=== PATIENT | male | born 1945 | race Caucasian/White ===

== ENCOUNTER 2017-12-12 09:44 | Observation (INO) | payer OTHER, MEDICARE ==
[2017-12-12] MEDS ORDERED: SODIUM CHLORIDE 0.9% 500 ML IV STA (10:20)
[2017-12-12] MEDS ORDERED: RX INFO: IV CONTRAST WAS GIVEN 1 EACH MISC MISCELLANE PRN (10:20)
[2017-12-12] MEDS ORDERED: SODIUM CHLORIDE 0.9% 1,000 ML IV STA (10:20)
[2017-12-12] MEDS ORDERED: ONDANSETRON 4 MG/2 ML VIAL IVP STA (10:20)
[2017-12-12] MEDS ORDERED: MAG HYDROX/AL HYDROX/SIMETH 30 ML, HYOSCYAMINE ELIXIR 10 ML, CIMETIDINE HCL 300 MG, LID... PO STA ×4 (10:21)
[2017-12-12] MEDS ORDERED: PANTOPRAZOLE 40 MG/10 ML VIAL IVP STA (10:21)
--- NOTE | 2017-12-12 10:48 | ED ---
Abdominal Pain HPI - General Chief Complaint: Abdominal Pain Stated Complaint: Abd Pain Time Seen by Provider: 12/12/17 10:11 Source: patient Mode of arrival: ambulatory Limitations: no limitations - History of Present Illness Initial Comments: This 72-year-old white male presents with a complaint of some midepigastric abdominal pain. He states that it started at approximately 1 AM today. It has been constant in nature. He has not tried to eat or drink anything. He has tried some Tylenol with limited relief. He denies any fevers or chills. He denies any nausea, vomiting, or diarrhea. There has been no chest pain or shortness of breath. He does relate a history remotely of being diagnosed with a hiatal hernia and his 30s. He will drink alcohol on occasion but none in the past several weeks. He apparently had a similar incident approximately 3 weeks ago and this resolved spontaneously after taking some Tylenol. He has taken some Advil approximately 2 and 3 days ago and does not normally take this. He apparently was having some minimal low back pain at that time but this has resolved. He denies any known history of peptic ulcer disease or pancreatitis. There is no history of known reflux. He did also try some Maalox without relief. No other complaints or modifying factors. He denies any known cardiac history. - Related Data Home Medications Medication Instructions Recorded Confirmed Aspirin EC [Ecotrin Low Dose] 81 mg PO HS 12/12/17 12/12/17 Lovastatin [Mevacor] 10 mg PO HS 12/12/17 12/12/17 Multivitamins, Thera [Multivitamin 1 tab PO HS 12/12/17 12/12/17 (formulary)] Ubidecarenone [Co Q-10] 100 mg PO HS 12/12/17 12/12/17 Allergies Allergy/AdvReac Type Severity Reaction Status Date / Time Sulfa (Sulfonamide Allergy Rash/Hives Verified 12/12/17 09:58 Antibiotics) Review of Systems ROS Statement: Those systems with pertinent positive or pertinent negative responses have been documented in the HPI. ROS Other: All systems not noted in ROS Statement are negative. Past Medical History Past Medical History: Hyperlipidemia History of Any Multi-Drug Resistant Organisms: None Reported Past Surgical History: No Surgical Hx Reported Past Psychological History: No Psychological Hx Reported Smoking Status: Never smoker Past Alcohol Use History: Occasional Past Drug Use History: None Reported General Exam - General Exam Comments Initial Comments: GENERAL: The patient is well nourished and well hydrated. VITAL SIGNS: Heart rate, blood pressure, respiratory rate reviewed as recorded in nurse's notes. EYES: Pupils are round and reactive. Extraocular movements are intact. No conjunctival / lid redness or swelling. ENT: No external evidence of injury, swelling, or ecchymosis. Airway is patent. Throat is clear. NECK: Nontender. No swelling or evidence of injury. No subcutaneous emphysema. Trachea is midline. No thyroid mass. HEART: Regular rate and rhythm. Good peripheral pulses. LUNGS/CHEST: Breath sounds clear and equal bilaterally. No rales, rhonchi, or wheezes. No ecchymosis, subcutaneous emphysema, or tenderness. ABDOMEN: There is tenderness directly in the midepigastric region only. No palpable masses or organomegaly. No peritoneal signs. No abdominal wall swelling or ecchymosis. EXTREMITIES: No extremity tenderness. Normal muscle tone and function. No thoracolumbar tenderness. NEUROLOGIC: Sensation is grossly intact. Cranial nerve exam reveals face is symmetrical, tongue is midline, speech is clear. SKIN: No abrasions or ecchymosis is noted. No induration or masses noted. PSYCHIATRIC: Alert and oriented. Appropriate behavior and judgment. Limitations: no limitations Course Vital Signs 12/12/17 12/12/17 12/12/17 09:44 12:24 14:11 Temperature 97.5 F L Pulse Rate 78 74 77 Respiratory 18 18 18 Rate Blood Pressure 198/88 138/84 144/83 O2 Sat by Pulse 98 98 100 Oximetry Medical Decision Making - Medical Decision Making The patient was seen and examined. All diagnostics were reviewed. An IV is started and he does receive some Protonix as well as some Zofran intravenously. He also receives a GI cocktail. The patient did not have any significant relief with the medication and therefore is given 4 mg of morphine intravenously. The laboratory was all essentially within normal limits. The computed tomography scan of the abdomen and pelvis does show evidence of gallstones and they recommend a gallbladder ultrasound or nuclear medicine study. The gallbladder ultrasound is ordered. The radiologist does also note a degree of prostatic hypertrophy. The EKG shows a sinus bradycardia at a rate of 58. There is some T-wave inversions in lead 3 and aVF. There is evidence of possible left ventricular hypertrophy. There is T-wave inversions in V5 and V6 as well. The CT intervals 148, QRS duration is 110, and the QTC intervals 424. The cardiac enzymes are negative but these will be repeated. The case is discussed with PCP and he recommends admission to the hospital with surgery and cardiology consults. It certainly appears that he does have a degree of cholecystitis but also has no EKG changes and will need cardiac clearance prior to any gallbladder intervention. His pain is in the midepigastric region as well and the possibility of this being related to a cardiac event is possible. - Lab Data Result diagrams: 12/12/17 10:46 12/12/17 10:46 Lab Results 12/12/17 12/12/17 12/12/17 Range/Units 10:46 10:46 10:46 WBC 9.4 (3.8-10.6) k/uL RBC 5.22 (4.30-5.90) m/uL Hgb 16.0 (13.0-17.5) gm/dL Hct 48.0 (39.0-53.0) % MCV 91.9 (80.0-100.0) fL MCH 30.6 (25.0-35.0) pg MCHC 33.3 (31.0-37.0) g/dL RDW 13.3 (11.5-15.5) % Plt Count 152 (150-450) k/uL Neutrophils % 83 % Lymphocytes % 9 % Monocytes % 4 % Eosinophils % 3 % Basophils % 0 % Neutrophils # 7.8 H (1.3-7.7) k/uL Lymphocytes # 0.8 L (1.0-4.8) k/uL Monocytes # 0.4 (0-1.0) k/uL Eosinophils # 0.3 (0-0.7) k/uL Basophils # 0.0 (0-0.2) k/uL PT (9.0-12.0) sec INR (<1.2) APTT (22.0-30.0) sec Sodium 143 (137-145) mmol/L Potassium 4.4 (3.5-5.1) mmol/L Chloride 103 (98-107) mmol/L Carbon Dioxide 26 (22-30) mmol/L Anion Gap 14 mmol/L BUN 11 (9-20) mg/dL Creatinine 0.69 (0.66-1.25) mg/dL Est GFR (CKD-EPI)AfAm >90 (>60 ml/min/1.73 sqM) Est GFR (CKD-EPI)NonAf >90 (>60 ml/min/1.73 sqM) Glucose 104 H (74-99) mg/dL Calcium 9.5 (8.4-10.2) mg/dL Total Bilirubin 0.9 (0.2-1.3) mg/dL AST 37 (17-59) U/L ALT 53 (21-72) U/L Alkaline Phosphatase 50 (38-126) U/L Total Creatine Kinase 132 (55-170) U/L CK-MB (CK-2) 1.7 (0.0-2.4) ng/mL CK-MB (CK-2) Rel Index 1.3 Troponin I <0.012 (0.000-0.034) ng/mL Total Protein 7.2 (6.3-8.2) g/dL Albumin 4.7 (3.5-5.0) g/dL Amylase 85 (30-110) U/L Lipase 152 (23-300) U/L Urine Color Urine Appearance (Clear) Urine pH (5.0-8.0) Ur Specific [place] (1.001-1.035) Urine Protein (Negative) Urine Glucose (UA) (Negative) Urine Ketones (Negative) Urine Blood (Negative) Urine Nitrite (Negative) Urine Bilirubin (Negative) Urine Urobilinogen (<2.0) mg/dL Ur Leukocyte Esterase (Negative) Urine RBC (0-5) /hpf Urine WBC (0-5) /hpf Urine Mucus (None) /hpf Urine Sperm (None) /hpf 12/12/17 12/12/17 Range/Units 10:46 10:46 WBC (3.8-10.6) k/uL RBC (4.30-5.90) m/uL Hgb (13.0-17.5) gm/dL Hct (39.0-53.0) % MCV (80.0-100.0) fL MCH (25.0-35.0) pg MCHC (31.0-37.0) g/dL RDW (11.5-15.5) % Plt Count (150-450) k/uL Neutrophils % % Lymphocytes % % Monocytes % % Eosinophils % % Basophils % % Neutrophils # (1.3-7.7) k/uL Lymphocytes # (1.0-4.8) k/uL Monocytes # (0-1.0) k/uL Eosinophils # (0-0.7) k/uL Basophils # (0-0.2) k/uL PT 10.7 (9.0-12.0) sec INR 1.1 (<1.2) APTT 25.0 (22.0-30.0) sec Sodium (137-145) mmol/L Potassium (3.5-5.1) mmol/L Chloride (98-107) mmol/L Carbon Dioxide (22-30) mmol/L Anion Gap mmol/L BUN (9-20) mg/dL Creatinine (0.66-1.25) mg/dL Est GFR (CKD-EPI)AfAm (>60 ml/min/1.73 sqM) Est GFR (CKD-EPI)NonAf (>60 ml/min/1.73 sqM) Glucose (74-99) mg/dL Calcium (8.4-10.2) mg/dL Total Bilirubin (0.2-1.3) mg/dL AST (17-59) U/L ALT (21-72) U/L Alkaline Phosphatase (38-126) U/L Total Creatine Kinase (55-170) U/L CK-MB (CK-2) (0.0-2.4) ng/mL CK-MB (CK-2) Rel Index Troponin I (0.000-0.034) ng/mL Total Protein (6.3-8.2) g/dL Albumin (3.5-5.0) g/dL Amylase (30-110) U/L Lipase (23-300) U/L Urine Color Yellow Urine Appearance Clear (Clear) Urine pH 7.5 (5.0-8.0) Ur Specific [place] 1.027 (1.001-1.035) Urine Protein 1+ H (Negative) Urine Glucose (UA) Negative (Negative) Urine Ketones Negative (Negative) Urine Blood Negative (Negative) Urine Nitrite Negative (Negative) Urine Bilirubin Negative (Negative) Urine Urobilinogen <2.0 (<2.0) mg/dL Ur Leukocyte Esterase Negative (Negative) Urine RBC 2 (0-5) /hpf Urine WBC <1 (0-5) /hpf Urine Mucus Few H (None) /hpf Urine Sperm Rare (None) /hpf Disposition Clinical Impression: Abdominal pain, Gallstones, BPH (benign prostatic hyperplasia), Cholecystitis, Acute electrocardiogram changes Disposition: ADMITTED IP TO THIS HOSP Condition: Fair Is patient prescribed a controlled substance at d/c from ED?: No Referrals: Aldair Law MD [Primary Care Provider] - 1-2 days Time of Disposition: 15:14 Decision Date: 12/12/17 Decision Time: 15:14
[2017-12-12 11:02] LABS: Basophils % (A) 0 %; Eosinophils # (A) 0.3 k/uL (0-0.7); Eosinophils % (A) 3 %; Lymphocytes # (A) 0.8 k/uL (1.0-4.8); Lymphocytes % (A) 9 %; MCH 30.6 pg (25.0-35.0); MCHC 33.3 g/dL (31.0-37.0); MCV 91.9 fL (80.0-100.0); Mean Platelet Volume 8.2; Monocytes # (A) 0.4 k/uL (0-1.0); Monocytes % (A) 4 %; Neutrophils # (A) 7.8 k/uL (1.3-7.7); Neutrophils % (A) 83 %; Platelet Count 152 k/uL (150-450); RBC 5.22 m/uL (4.30-5.90); RDW 13.3 % (11.5-15.5); WBC 9.4 k/uL (3.8-10.6)
[2017-12-12 11:09] LABS: Appearance,Urine Clear (Clear); Bilirubin,Urine Negative (Negative); Blood,Urine Negative (Negative); Color,Urine Yellow; Glucose,Urine (UA) Negative (Negative); Ketones,Urine Negative (Negative); Leukocyte Esterase,Urine Negative (Negative); Mucus,Urine Few /hpf; Nitrite,Urine Negative (Negative); PH, Urine 7.5 (5.0-8.0); Protein,Urine 1+ (Negative); RBC,Urine 2 /hpf (0-5); Specific Gravity,Urine 1.027 (1.001-1.035); Sperm,Urine Rare /hpf; Urobilinogen,Urine <2.0 mg/dL (<2.0); WBC,Urine <1 /hpf (0-5)
[2017-12-12 11:13] LABS: ALT 53 U/L (21-72); AST 37 U/L (17-59); Albumin 4.7 g/dL (3.5-5.0); Alkaline Phosphatase 50 U/L (38-126); Amylase 85 U/L (30-110); Anion Gap 14 mmol/L; Blood Urea Nitrogen 11 mg/dL (9-20); Calcium 9.5 mg/dL (8.4-10.2); Carbon Dioxide 26 mmol/L (22-30); Chloride 103 mmol/L (98-107); Glucose 104 mg/dL (74-99); Lipase 152 U/L (23-300); Potassium 4.4 mmol/L (3.5-5.1); Sodium 143 mmol/L (137-145); Total Bilirubin 0.9 mg/dL (0.2-1.3); Total Protein 7.2 g/dL (6.3-8.2)
[2017-12-12 11:23] LABS: Creatine Kinase 132 U/L (55-170)
[2017-12-12 11:36] LABS: Creatine Kinase MB 1.7 ng/mL (0.0-2.4); Troponin I <0.012 ng/mL (0.000-0.034)
[2017-12-12 11:43] LABS: INR 1.1 (<1.2); Prothrombin Time 10.7 sec (9.0-12.0)
--- NOTE | 2017-12-12 12:19 | CT ---
EXAMINATION TYPE: CT abdomen pelvis w con DATE OF EXAM: 12/12/2017 COMPARISON: NONE HISTORY: Epigastric pain with nausea and diarrhea CT DLP: 486.5 mGycm, Automated Exposure Control for Dose Reduction was Utilized. CONTRAST: CT scan of the abdomen and pelvis is performed without oral but with IV Contrast, patient injected wi th 100 mL of Isovue 300. FINDINGS: LUNG BASES: Dependent atelectasis in both bases is present. Coronary artery calcification is noted wh ich is noted marker for coronary artery disease in the LAD and RCA distribution. LIVER/GB: Several small gallstones are seen in gallbladder. No surrounding inflammatory changes prese nt. There is trace perihepatic ascites along superior margin seen best coronal images. PANCREAS: No significant abnormality is seen. SPLEEN: No significant abnormality is seen. ADRENALS: No significant abnormality is seen. KIDNEYS: No significant abnormality is seen. BOWEL: Evaluation bowel is suboptimal secondary to lack of enteric contrast. There is no suspicious s mall or large bowel dilatation. Sigmoid colonic diverticulosis is present. No convincing CT evidence for acute diverticulitis. PROSTATE/SEMINAL VESICLES: Prostate gland is heterogeneous in appearance and enlarged in size bulging on bladder base, underlying BPH is felt present. Correlate clinically. Central calcification in pros morales is presumed within Central zone. LYMPH NODES: No greater than 1cm abdominal or pelvic lymph nodes are appreciated. OSSEOUS STRUCTURES: Facet arthropathy lower lumbar levels is seen. There is right-sided pars defects L5 level. There is no significant spondylolisthesis.. OTHER: No significant additional abnormality is seen. IMPRESSION: No bowel obstruction is seen. Gallstones with some pericholecystic fluid, no convincing surrounding inflammatory change to suggest acute cholecystitis on CT. Consider nuclear medicine or ul trasound correlation. Otherwise no suspicious finding is seen to account for patient's symptoms.
[2017-12-12] MEDS ORDERED: MORPHINE SULFATE 4 MG/ML SYRINGE IVP STA (12:27)
--- NOTE | 2017-12-12 14:53 | US ---
EXAMINATION TYPE: US gallbladder DATE OF EXAM: 12/12/2017 COMPARISON: NONE CLINICAL HISTORY: Pain. Epigastric pain, gallstones EXAM MEASUREMENTS: Liver Length: 13.6 cm Gallbladder Wall: 0.5 cm CBD: 0.5 cm Right Kidney: 10.5 x 5.3 x 4.9 cm Technical limitations due to large amount of overlying bowel content Pancreas: Obscured by bowel gas Liver: limited evaluation, visualized portions appear wnl Gallbladder: gallstones, thickened GB wall Evidence for sonographic Rodriguez's sign: No CBD: appears wnl Right Kidney: visualized portions show no evidence of hydronephrosis IMPRESSION: 1. Cholelithiasis with thickened gallbladder wall correlate for cholecystitis.
[2017-12-12] MEDS ORDERED: ASPIRIN 81 MG PO STA (15:15)
[2017-12-12] MEDS ORDERED: NITROGLYCERIN OINT 1 INCH/GM PACKET TOPICAL STA (15:15)
[2017-12-12] MEDS ORDERED: MORPHINE SULFATE 4 MG/ML SYRINGE IV PRN (15:15)
[2017-12-12 15:43] LABS: Creatine Kinase 120 U/L (55-170)
[2017-12-12 15:56] LABS: Creatine Kinase MB 1.3 ng/mL (0.0-2.4); Troponin I <0.012 ng/mL (0.000-0.034)
[2017-12-12 17:15] VITALS: BMI 23.6
[2017-12-12] MEDS: NITROGLYCERIN OINT 1 INCH/GM PACKET TOPICAL SCH ×2 (19:40→23:07)
[2017-12-12] MEDS: MULTIVITAMINS, THERA 1 EACH TAB PO SCH (20:31)
[2017-12-12] MEDS: ATORVASTATIN 10 MG TAB PO SCH (20:31)
[2017-12-12] MEDS ORDERED: NON-FORMULARY DRUG (Ubidecarenone [Co Q-10] 100 MG) PO SCH (21:00)
--- NOTE | 2017-12-12 21:54 | HP ---
HISTORY AND PHYSICAL Mr. Red is a 72-year-old gentleman whose chief complaint was upper abdominal discomfort. HISTORY OF PRESENT ILLNESS: The patient was awoken about 1 a.m. this morning with rather severe upper epigastric discomfort. It did not radiate up to the jaw or shoulder. No marked nausea or vomiting associated with this. No fever or chills or unusual chest pain. He had a similar episode that spontaneously cleared the previous month. Otherwise, he has not had this type of problem in the past. PAST MEDICAL HISTORY: Hyperlipidemia. No history of hypertension, myocardial infarction, diabetes or stroke. ALLERGIES: SULFA. HOME MEDICATIONS: 1. Lovastatin for cholesterol 10 mg. 2. Aspirin 81 mg. 3. Multiple vitamin daily. 4. CO-Q10 100 mg at bedtime. REVIEW OF SYSTEMS: As mentioned in the history of present illness, he is a fairly active gentleman. No complaints of any headaches or visual disturbances. No unusual chest pain, fever, chills or cough. No nausea or vomiting. No urinary or bowel symptoms. No blood per rectum. No unusual leg edema. FAMILY HISTORY: Positive for coronary artery disease. SOCIAL HISTORY: The patient drinks a small amount of wine on a regular basis but does not smoke. PAST SURGICAL HISTORY: 1. Colonoscopy in 2013 that revealed some diverticulosis. 2. Tonsillectomy and adenoidectomy in the past. Otherwise no major operations. PHYSICAL EXAMINATION: Temperature is normal at 98.4, pulse 61, respirations 16, blood pressure 112/62, and he is 96% saturated on room air. Head and neck exam is unremarkable. Supple. No adenopathy, thyromegaly or carotid bruits auscultated. LUNGS: Clear to auscultation. HEART: Regular without murmurs or rubs appreciated. ABDOMEN: Some mild epigastric discomfort but no rebound, guarding or masses. Bowel sounds were present. Scrotal and rectal exam deferred. Extremities revealed no edema. Neurologically he is alert and oriented. Cranial nerves intact. No focal weakness was noted. LABORATORY VALUES: White count of 9.4, hemoglobin 16, platelet count of 152. Slight left shift of neutrophils at 7.8. The INR is 1.1 with a PTT of 25. Chemistries revealed normal electrolytes with sodium 143, potassium 4.1, CO2 content of 26, BUN of 11 with creatinine 0.69, giving him a GFR greater than 60. Blood sugar was 104. Other liver function tests were all unremarkable. Troponins x2 less than 0.012. Amylase and lipase were normal. Urinalysis revealed 1+ protein but negative leukocyte esterase and less than 1 WBC; 2 RBCs present. IMAGING STUDIES: Patient did have an abdominal and pelvic CT scan with contrast that did reveal some sigmoid diverticulosis but no evidence of acute diverticulitis. The pancreas did not show any significant abnormality. Gallstones were present. The patient subsequently had a gallbladder ultrasound which revealed cholelithiasis with a thickened gallbladder wall consistent with cholecystitis. Patient had an EKG also done which revealed sinus bradycardia, left anterior fascicular block. There were some non-symmetrical T-wave inversions laterally. OVERALL IMPRESSION AT THIS POINT: A 72-year-old gentleman with acute upper abdominal pain, but EKG changes noted which were somewhat new from an EKG that was done one month ago in the office, although they are not definitive for ischemic disease and his troponin levels are normal. The patient also has gallstones and ultrasound consistent with cholecystitis, although clinically he is somewhat improved. The patient has a past history of hyperlipidemia but otherwise unremarkable. PLAN: At this point plans are for the patient to be admitted. Consults for Surgery and Cardiology. Repeat cardiac enzymes and EKG. Patient to be n.p.o. in the morning and further treatment and evaluations pending clinical course and opinion from consultants. This was discussed with the patient and his at bedside this evening. Reasons for further evaluation and testing were discussed. SABA / CAMILLA: [id number] /
[2017-12-12] MEDS: PIPERACILLIN-TAZOBACTAM 3.375 GM in DEXTROSE/WATER 1 50ML.BAG IVPB SCH (23:17)
[2017-12-13 04:11] LABS: Cholesterol 130 mg/dL (<200); HDL Cholesterol 39 mg/dL (40-60); LDL Cholesterol,Calculated 67 mg/dL (0-99); Triglycerides 119 mg/dL (<150)
[2017-12-13] MEDS: NITROGLYCERIN OINT 1 INCH/GM PACKET TOPICAL SCH ×2 (05:41→12:34)
--- NOTE | 2017-12-13 08:03 | P.PN ---
Progress Note - Text Patient is a 72-year-old gentleman who presented to the emergency room yesterday with upper abdominal discomfort. Patient was found to have what appears to be an acute cholecystitis on CAT scan and ultrasound. His symptoms though in regard to his abdominal pain has improved. He was noted on EKG yesterday though to have some lateral T-wave changes that were new from EKG performed last month in the office. He denies though any chest pain. Troponins have been normal 3. Vital signs this morning show a temperature 90.7 with a pulse of 58 and respirations 16. Blood pressure 105/60 and he is 95% saturated on room air. Lung and heart exam was clear and regular. Abdomen is nontender to palpation this morning. No unusual edema. No neurological changes. Laboratory Once again troponins have been less than 0.0123. LDL cholesterol 67 with a total cholesterol 1:30. Repeat EKG pending. Impressions and plans We'll await opinion from cardiology and surgery today regarding further treatment and evaluation as deemed necessary. This was discussed with patient this morning at bedside. He remains nothing by mouth at this time this morning pending those evaluations.
[2017-12-13] MEDS: PIPERACILLIN-TAZOBACTAM 3.375 GM in DEXTROSE/WATER 1 50ML.BAG IVPB SCH ×2 (08:20→16:28)
[2017-12-13] MEDS: PANTOPRAZOLE 40 MG/10 ML VIAL IVP SCH (08:21)
[2017-12-13] MEDS: ENOXAPARIN 40 MG/0.4 ML SYRINGE SQ SCH (08:33)
[2017-12-13] MEDS ORDERED: ASPIRIN 325 MG TAB PO SCH (09:00)
[2017-12-13] MEDS ORDERED: HEPARIN SODIUM,PORCINE 5,000 UNIT/ML 1 ML VIAL SQ STA (09:01)
--- NOTE | 2017-12-13 09:08 | P.GSCN ---
History of Present Illness Consult date: 12/13/17 History of present illness: This is a 72-year-old male who presented to the hospital with a chief complaint of midepigastric pain. He previously had a similar episode over a week ago. This passed on its own. He has been complaining of some abdominal discomfort after eating. He has no other major medical or surgical history. He denies any nausea or vomiting. He describes the pain as cramping and constant however overnight the pain improved. On computed tomography scan and ultrasound there was gallbladder wall thickening and gallstones noted. Past Medical History Past Medical History: Hyperlipidemia History of Any Multi-Drug Resistant Organisms: None Reported Past Surgical History: No Surgical Hx Reported Past Anesthesia/Blood Transfusion Reactions: No Reported Reaction Past Psychological History: No Psychological Hx Reported Smoking Status: Never smoker Past Alcohol Use History: Occasional Past Drug Use History: None Reported - Past Family History Father Family Medical History: Myocardial Infarction (MT) Mother Family Medical History: No Reported History Brother(s) Family Medical History: AICD/Pacemaker, Coronary Artery Disease (CAD) Medications and Allergies Home Medications Medication Instructions Recorded Confirmed Type Aspirin EC [Ecotrin Low Dose] 81 mg PO HS 12/12/17 12/12/17 History Lovastatin [Mevacor] 10 mg PO HS 12/12/17 12/12/17 History Multivitamins, Thera [Multivitamin 1 tab PO HS 12/12/17 12/12/17 History (formulary)] Ubidecarenone [Co Q-10] 100 mg PO HS 12/12/17 12/12/17 History Allergies Allergy/AdvReac Type Severity Reaction Status Date / Time Sulfa (Sulfonamide Allergy Rash/Hives Verified 12/12/17 09:58 Antibiotics) Surgical - Exam Osteopathic Statement: *. No significant issues noted on an osteopathic structural exam other than those noted in the History and Physical/Consult. Vital Signs Temp Pulse Resp BP Pulse Ox 97.5 F L 78 18 198/88 98 12/12/17 09:44 12/12/17 09:44 12/12/17 09:44 12/12/17 09:44 12/12/17 09:44 - General well developed, well nourished, no distress - Eyes PERRL - Neck trachea midline - Respiratory normal expansion, normal respiratory effort - Cardiovascular Rhythm: regular - Abdomen Abdomen: soft, non tender - Neurologic normal coordination, normal sensation - Psychiatric oriented to time, oriented to person, oriented to place Results - Labs 12/12/17 10:46 12/12/17 10:46 Abnormal Lab Results - Last 24 Hours (Table) 12/12/17 12/12/17 12/12/17 Range/Units 10:46 10:46 10:46 Neutrophils # 7.8 H (1.3-7.7) k/uL Lymphocytes # 0.8 L (1.0-4.8) k/uL Glucose 104 H (74-99) mg/dL HDL Cholesterol (40-60) mg/dL Urine Protein 1+ H (Negative) Urine Mucus Few H (None) /hpf 12/13/17 Range/Units 03:47 Neutrophils # (1.3-7.7) k/uL Lymphocytes # (1.0-4.8) k/uL Glucose (74-99) mg/dL HDL Cholesterol 39 L (40-60) mg/dL Urine Protein (Negative) Urine Mucus (None) /hpf Diabetes panel 12/12/17 12/13/17 Range/Units 10:46 03:47 Sodium 143 (137-145) mmol/L Potassium 4.4 (3.5-5.1) mmol/L Chloride 103 (98-107) mmol/L Carbon Dioxide 26 (22-30) mmol/L BUN 11 (9-20) mg/dL Creatinine 0.69 (0.66-1.25) mg/dL Glucose 104 H (74-99) mg/dL Calcium 9.5 (8.4-10.2) mg/dL AST 37 (17-59) U/L ALT 53 (21-72) U/L Alkaline Phosphatase 50 (38-126) U/L Total Protein 7.2 (6.3-8.2) g/dL Albumin 4.7 (3.5-5.0) g/dL Triglycerides 119 (<150) mg/dL HDL Cholesterol 39 L (40-60) mg/dL Calcium panel 12/12/17 Range/Units 10:46 Calcium 9.5 (8.4-10.2) mg/dL Albumin 4.7 (3.5-5.0) g/dL Pituitary panel 12/12/17 Range/Units 10:46 Sodium 143 (137-145) mmol/L Potassium 4.4 (3.5-5.1) mmol/L Chloride 103 (98-107) mmol/L Carbon Dioxide 26 (22-30) mmol/L BUN 11 (9-20) mg/dL Creatinine 0.69 (0.66-1.25) mg/dL Glucose 104 H (74-99) mg/dL Calcium 9.5 (8.4-10.2) mg/dL Adrenal panel 12/12/17 Range/Units 10:46 Sodium 143 (137-145) mmol/L Potassium 4.4 (3.5-5.1) mmol/L Chloride 103 (98-107) mmol/L Carbon Dioxide 26 (22-30) mmol/L BUN 11 (9-20) mg/dL Creatinine 0.69 (0.66-1.25) mg/dL Glucose 104 H (74-99) mg/dL Calcium 9.5 (8.4-10.2) mg/dL Total Bilirubin 0.9 (0.2-1.3) mg/dL AST 37 (17-59) U/L ALT 53 (21-72) U/L Alkaline Phosphatase 50 (38-126) U/L Total Protein 7.2 (6.3-8.2) g/dL Albumin 4.7 (3.5-5.0) g/dL - Imaging CT scan - abdomen: report reviewed, image reviewed CT scan - pelvis: report reviewed, image reviewed US - abdomen: report reviewed Assessment and Plan Assessment: Acute on chronic cholecystitis Plan: A discussion with the patient regarding his clinical findings which are consistent with acute on chronic cholecystitis. Patient has been kept nothing by mouth overnight on antibiotics. He states he would like to have surgery done during this hospital visit. I discussed with him the risks benefits and alternatives to laparoscopic cholecystectomy including risks of bleeding infection damage surrounding tissue need further operation/conversion to open, damage to common bile duct. Patient stated he understood these risks agreed and consented. Patient will be taken for laparoscopic Cholecystectomy pending clearance from cardiology.
--- NOTE | 2017-12-13 09:14 | ECHOF ---
Referral Reason:ecg changes, upper abd pain MEASUREMENTS -------- HEIGHT: 172.7 cm WEIGHT: 70.3 kg BP: 144/83 RVIDd: 3.2 cm (< 3.3) IVSd: 0.9 cm (0.6 - 1.1) LVIDd: 4.5 cm (3.9 - 5.3) LVPWd: 1.0 cm (0.6 - 1.1) IVSs: 1.4 cm LVIDs: 2.9 cm LVPWs: 1.4 cm Ao Diam: 3.2 cm (2.0 - 3.7) LAESV Index (A-L): 20.74 ml/m Ao Diam: 3.2 cm (2.0 - 3.7) AV Cusp: 2.0 cm (1.5 - 2.6) LA Diam: 3.3 cm (2.7 - 3.8) EPSS: 1.0 cm MV E Ronnie: 0.81 m/s MV DecT: 227 ms MV A Ronnie: 0.62 m/s MV E/A Ratio: 1.31 AR PHT: 665 ms RAP: 5.00 mmHg RVSP: 38.50 mmHg MV EF SLOPE: 77.39 mm/s (70 - 150) MV EXCURSION: 1.50 cm (> 18.000) FINDINGS -------- Sinus rhythm. This was a technically good study. The left ventricular size is normal. Left ventricular wall thickness is normal. Overall left vent ricular systolic function is normal with, an EF between 55 - 60 %. The right ventricle is normal in size and function. Normal LA size by volume 22+/-6 ml/m2. The right atrium is normal in size. Aortic valve is trileaflet and is mildly thickened. There is mild aortic regurgitation. The mitral valve is normal. Mild mitral regurgitation is present. Mild tricuspid regurgitation present. There is mild pulmonary hypertension. The right ventricular systolic pressure, as measured by Doppler, is 38.50mmHg. Trace/mild (physiologic) pulmonic regurgitation. The aortic root size is normal. Normal inferior vena cava with normal inspiratory collapse consistent with estimated right atrial pre ssure of 5 mmHg. There is no pericardial effusion. CONCLUSIONS -------- 1. Sinus rhythm. 2. This was a technically good study. 3. The left ventricular size is normal. 4. Left ventricular wall thickness is normal. 5. Overall left ventricular systolic function is normal with, an EF between 55 - 60 %. 6. Normal LA size by volume 22+/-6 ml/m2. 7. Aortic valve is trileaflet and is mildly thickened. 8. There is mild aortic regurgitation. 9. Mild mitral regurgitation is present. 10. Mild tricuspid regurgitation present. 11. There is mild pulmonary hypertension. 12. Trace/mild (physiologic) pulmonic regurgitation. 13. The aortic root size is normal. 14. There is no pericardial effusion. PROGRAM CHECKER: Todd Palma RDCS
[2017-12-13] MEDS ORDERED: IV FLUID CONTINUATION 800 ML IV ONE (09:37)
[2017-12-13] MEDS ORDERED: DEXAMETHASONE SOD PHOSPHATE 10 MG/ML 1 ML VIAL IV ONE (09:38)
[2017-12-13] MEDS ORDERED: ONDANSETRON 4 MG/2 ML VIAL IVP ONE (09:38)
[2017-12-13] MEDS ORDERED: ROCURONIUM BROMIDE 10 MG/ML 10 ML VIAL IV ONE (09:54)
[2017-12-13] MEDS ORDERED: fentaNYL (PF) 50 MCG/ML 2 ML AMP ONE (09:54)
[2017-12-13] MEDS ORDERED: KETOROLAC 30 MG/ML 1 ML VIAL ONE (09:54)
[2017-12-13] MEDS ORDERED: MIDAZOLAM 2 MG/2 ML VIAL ONE (09:54)
[2017-12-13] MEDS ORDERED: PROPOFOL 10 MG/ML 20 ML VIAL IV ONE (09:54)
[2017-12-13] MEDS ORDERED: LIDOCAINE 1% INJ 10MG/ML (20 ML MDV) ONE (09:54)
[2017-12-13] MEDS ORDERED: NEOSTIGMINE 1 MG/ML 10 ML VIAL ONE (09:54)
[2017-12-13] MEDS ORDERED: SUCCINYLCHOLINE CHLORIDE 100 MG/5 ML SYR IV ONE (09:54)
[2017-12-13] MEDS ORDERED: GLYCOPYRROLATE 0.2 MG/ML 2 ML VIAL ONE (09:54)
[2017-12-13] MEDS ORDERED: BUPIVACAINE (PF) 0.5% 30 ML VIAL SQ ONE ×2 (10:33)
[2017-12-13] MEDS: LACTATED RINGERS 1,000 ML IV ONE ×2 (10:34→11:20)
[2017-12-13] MEDS ORDERED: LACTATED RINGERS 1,000 ML IV ONE (10:34)
--- NOTE | 2017-12-13 11:08 | P.OP ---
Date of Procedure: 12/13/17 Preoperative Diagnosis: Acute Cholecystitis Postoperative Diagnosis: Same Procedure(s) Performed: Lap Cholecystectomy Anesthesia: HANYA Surgeon: Talib Jaffe Estimated Blood Loss (ml): 5 Condition: stable Disposition: PACU Indications for Procedure: This is a 72-year-old male who presented to the hospital with a chief complaint of midepigastric acute abdominal pain he was found have symptoms consistent with an radiologic findings consistent with acute cholecystitis his risk benefits and alternatives to procedure including risks of bleeding infection damage surrounding tissue need for further operation and damage to common bile duct he stated he understood agreed and consented informed consent was obtained Operative Findings: Acute cholecystitis Description of Procedure: Patient is brought operative suite remained in the supine position was prepped and draped in the usual sterile fashion timeout was performed correct patient correct procedure correct site was verified 15 mm incision was made periumbilical and using a 12 mm Visiport the abdomen was entered under direct visualization and insufflated no injuries were noted 35 mm ports were placed in the right upper quadrant. The gallbladder was identified and retracted cephalad. It was noted to be acutely inflamed omental adhesions were taken down bluntly the cystic duct and cystic artery were skeletonized critical view was obtained they were then doubly clipped and ligated. The gallbladder is then removed from the liver bed using Bovie cautery. It was removed to the 12 mm port site with an Endo Catch bag the liver bed was then irrigated and suctioned and noted for hemostasis. The 12 mm port site fascia was closed with 0 Vicryl in a [id number] fashion with the aid of a Az-Mayra suture passer. All ports removed under direct visualization skin was closed with 4-0 Vicryl subcuticular stitches followed by skin glue. Patient tolerated procedure well no apparent complications
--- NOTE | 2017-12-13 11:19 | P.CRDCN ---
History of Present Illness Consult date: 12/13/17 History of present illness: Mr. Red is a pleasant 72-year-old male with past medical history significant for dyslipidemia. He denies personal history of coronary artery disease, hypertension or diabetes mellitus. However he has significant family history for coronary artery disease with his father and brother both having had premature coronary artery disease. We've been asked to see him in consultation for chest pain. He states around 1:00 in the morning Tuesday he developed a squeezing sharp pain in the epigastric region. No radiation of the pain to the back arm neck or jaw and no associated symptoms such as shortness of breath, dizziness, palpitations, nausea, vomiting or diaphoresis. He states he has experienced discomfort like this one time approximately one month ago. At that time he went in size primary care physician had an EKG and was told it was possibly related to an esophageal spasm. Workup in the emergency department included a CT of his abdomen and pelvis as well as an abdominal ultrasound which revealed gallstones with cholelithiasis. Surgical evaluation has been requested. CT of the abdomen and pelvis also made note of coronary artery calcification noted in the LAD and RCA distribution. EKG obtained upon arrival reveals evidence of T-wave inversions in the lateral inferior leads. This was compared to EKG obtained at his primary care physician's office in October this appears to be a new finding. He states he is very active and plays volleyball, walks daily and plays pickle ball regularly. Laboratory data reviewed, hemoglobin 16.0, platelets 152, sodium 143, potassium 4.4, creatinine 0.69, cardiac enzymes negative 3. Current cardiac medications include lovastatin 10 mg daily and aspirin 81 mg daily. Review of Systems At the time of my exam: CONSTITUTIONAL: Denies fever. Denies chills. EYES: Denies blurred vision. Denies vision changes. Denies eye pain. EARS, NOSE, MOUTH & THROAT: Denies headache. Denies sore throat. Denies ear pain. CARDIOVASCULAR: Denies chest pain. Denies shortness of breath. Denies orthopnea. Denies PND. Denies palpitations. RESPIRATORY: Denies cough. GASTROINTESTINAL: Denies abdominal pain. Denies diarrhea. Denies constipation. Denies nausea. Denies vomiting. MUSCULOSKELETAL: Denies myalgias. INTEGUMENTARY: Denies pruitis. Denies rash. NEUROLOGIC: Denies numbness. Denies tingling. Denies weakness. PSYCHIATRIC: Denies anxiety. Denies depression. ENDOCRINE: Denies fatigue. Denies weight change. Denies polydipsia. Denies polyurina. GENITOURINARY: Denies burning, hematuria or urgency with micturation. HEMATOLOGIC: Denies history of anemia. Denies bleeding. Past Medical History Past Medical History: Hyperlipidemia History of Any Multi-Drug Resistant Organisms: None Reported Past Surgical History: No Surgical Hx Reported Past Anesthesia/Blood Transfusion Reactions: No Reported Reaction Past Psychological History: No Psychological Hx Reported Smoking Status: Never smoker Past Alcohol Use History: Occasional Past Drug Use History: None Reported - Past Family History Father Family Medical History: Myocardial Infarction ([place]) Mother Family Medical History: No Reported History Brother(s) Family Medical History: AICD/Pacemaker, Coronary Artery Disease (CAD) Medications and Allergies Home Medications Medication Instructions Recorded Confirmed Type Aspirin EC [Ecotrin Low Dose] 81 mg PO HS 12/12/17 12/12/17 History Lovastatin [Mevacor] 10 mg PO HS 12/12/17 12/12/17 History Multivitamins, Thera [Multivitamin 1 tab PO HS 12/12/17 12/12/17 History (formulary)] Ubidecarenone [Co Q-10] 100 mg PO HS 12/12/17 12/12/17 History Allergies Allergy/AdvReac Type Severity Reaction Status Date / Time Sulfa (Sulfonamide Allergy Rash/Hives Verified 12/13/17 09:32 Antibiotics) Physical Exam Vitals: Vital Signs Temp Pulse Pulse Resp BP BP Pulse Ox 12/13/17 04:00 98.7 F 58 L 16 105/60 95 12/13/17 03:35 16 12/12/17 23:44 16 12/12/17 23:36 98.4 F 68 16 107/58 95 12/12/17 20:00 16 12/12/17 19:45 98.4 F 61 16 112/62 96 12/12/17 17:21 18 12/12/17 16:15 97.8 F 57 L 18 128/67 95 12/12/17 15:45 97.9 F 88 20 133/69 98 12/12/17 14:11 77 18 144/83 100 12/12/17 12:24 74 18 138/84 98 12/12/17 09:44 97.5 F L 78 18 198/88 98 Intake and Output 12/12/17 12/13/17 12/13/17 22:59 06:59 14:59 Other: Voiding Method Toilet Toilet # Voids 1 Weight 70.307 kg Blood pressure 117/60 165 afebrile maintaining oxygen saturation on room air GENERAL: This is a 72-year-old male in no apparent distress at the time of my examination. HEENT: Head is atraumatic, normocephalic. Pupils are equal, round. Sclerae anicteric. Conjunctivae are clear. Mucous membranes of the mouth are moist. Neck is supple. There is no jugular venous distention. No carotid bruit is heard. LUNGS: Clear to auscultation no wheezes, rales or rhonchi. No chest wall tenderness is noted on palpation or with deep breathing. HEART: Regular rate and rhythm without murmurs, rubs or gallops. S1 and S2 heard. ABDOMEN: Soft, nontender. Bowel sounds are heard. No organomegaly noted. EXTREMITIES: No evidence of peripheral edema and no calf tenderness noted. VASCULAR: Radial and dorsalis pedis pulses palpated, no evidence of clubbing. NEUROLOGIC: Patient is awake, alert and oriented x3. Results 12/12/17 10:46 12/12/17 10:46 Cardiac Enzymes 12/12/17 12/12/17 12/12/17 Range/Units 10:46 10:46 15:20 AST 37 (17-59) U/L CK-MB (CK-2) 1.7 1.3 (0.0-2.4) ng/mL Troponin I <0.012 <0.012 (0.000-0.034) ng/mL 12/13/17 Range/Units 03:47 AST (17-59) U/L CK-MB (CK-2) (0.0-2.4) ng/mL Troponin I <0.012 (0.000-0.034) ng/mL Coagulation 12/12/17 Range/Units 10:46 PT 10.7 (9.0-12.0) sec APTT 25.0 (22.0-30.0) sec Lipids 12/13/17 Range/Units 03:47 Triglycerides 119 (<150) mg/dL Cholesterol 130 (<200) mg/dL HDL Cholesterol 39 L (40-60) mg/dL CBC 12/12/17 Range/Units 10:46 WBC 9.4 (3.8-10.6) k/uL RBC 5.22 (4.30-5.90) m/uL Hgb 16.0 (13.0-17.5) gm/dL Hct 48.0 (39.0-53.0) % Plt Count 152 (150-450) k/uL Comprehensive Metabolic Panel 12/12/17 Range/Units 10:46 Sodium 143 (137-145) mmol/L Potassium 4.4 (3.5-5.1) mmol/L Chloride 103 (98-107) mmol/L Carbon Dioxide 26 (22-30) mmol/L BUN 11 (9-20) mg/dL Creatinine 0.69 (0.66-1.25) mg/dL Glucose 104 H (74-99) mg/dL Calcium 9.5 (8.4-10.2) mg/dL AST 37 (17-59) U/L ALT 53 (21-72) U/L Alkaline Phosphatase 50 (38-126) U/L Total Protein 7.2 (6.3-8.2) g/dL Albumin 4.7 (3.5-5.0) g/dL Current Medications Generic Name Dose Route Start Last Admin Trade Name Freq PRN Reason Stop Dose Admin Aspirin 325 mg 12/13/17 09:00 Aspirin PO DAILY THERESE Atorvastatin Calcium 10 mg 12/12/17 21:00 12/12/17 20:31 Lipitor PO 10 mg HS THERESE Administration Enoxaparin Sodium 40 mg 12/13/17 09:00 Lovenox SQ DAILY THERESE Piperacillin/Tazobactam/ 50 mls @ 12.5 mls/hr 12/13/17 00:00 12/12/17 23:17 Dextrose 3.375 gm/ IV Solution IVPB 12.5 mls/hr Q8HR THERESE Administration Miscellaneous Information 1 each 12/12/17 10:20 12/12/17 10:38 Rx Info: Iv Contrast Was Given MISCELLANE 12/14/17 10:20 1 each DAILY PRN Administration Per Protocol Morphine Sulfate 4 mg 12/12/17 15:15 Morphine Sulfate (Inj) IV Q3H PRN Severe Pain Multivitamins 1 each 12/12/17 21:00 12/12/17 20:31 Theragran PO 1 each HS THERESE Administration Nitroglycerin 1 inch 12/12/17 18:00 12/13/17 05:41 Nitro-Bid Oint TOPICAL Not Given Q6HR THERESE Pantoprazole Sodium 40 mg 12/13/17 09:00 Protonix IVP DAILY THERESE Intake and Output 12/12/17 12/13/17 12/13/17 22:59 06:59 14:59 Other: Voiding Method Toilet Toilet # Voids 1 Weight 70.307 kg 12/12/17 10:46 12/12/17 10:46 Assessment and Plan Assessment: ASSESSMENT 1. Epigastric pain with evidence of gallstones and cholelithiasis. Plan is for cholecystectomy with Dr. Jaffe this afternoon. 2. EKG changes, T-wave inversions lateral and inferior. 3. Dyslipidemia, on lovastatin 4. Significant family history of coronary artery disease, father and brother both with premature coronary artery disease PLAN Obtain 2-D echocardiogram and Doppler study to assess cardiac structure and function. If echocardiogram is normal the patient is stable from a cardiac perspective and appropriate risk for surgical intervention for cholecystectomy. Continue with lovastatin 10 mg daily and aspirin 81 mg daily. Follow-up with Dr. Keenan in 2-3 weeks outpatient stress testing. Thank you kindly for this consultation. Nurse Practitioner note has been reviewed, I agree with a documented findings and plan of care. Patient was seen and examined.
[2017-12-13] MEDS: ATORVASTATIN 10 MG TAB PO SCH (20:26)
[2017-12-13] MEDS: MULTIVITAMINS, THERA 1 EACH TAB PO SCH (20:27)
[2017-12-14] MEDS: PIPERACILLIN-TAZOBACTAM 3.375 GM in DEXTROSE/WATER 1 50ML.BAG IVPB SCH ×2 (00:14→08:47)
[2017-12-14 06:08] LABS: ALT 64 U/L (21-72); AST 42 U/L (17-59); Albumin 3.2 g/dL (3.5-5.0); Alkaline Phosphatase 36 U/L (38-126); Anion Gap 8 mmol/L; Blood Urea Nitrogen 11 mg/dL (9-20); Calcium 8.6 mg/dL (8.4-10.2); Carbon Dioxide 28 mmol/L (22-30); Chloride 104 mmol/L (98-107); Glucose 103 mg/dL (74-99); Potassium 4.1 mmol/L (3.5-5.1); Sodium 140 mmol/L (137-145); Total Protein 5.3 g/dL (6.3-8.2)
--- NOTE | 2017-12-14 08:10 | P.DS ---
Providers Date of admission: 12/12/17 15:15 The patient is a 72-year-old gentleman who initially presented to the emergency room with upper abdominal discomfort to. The patient was found to have acute cholecystitis on CAT scan and ultrasound but also demonstrated new ST-T wave changes on his EKG that was done in the emergency room. The patient was seen by surgery and cardiology. Serial enzymes did not show any increase in his troponin values. An echocardiogram overall showed good ejection fraction of 55-60%. The aortic root was normal in size and no pericardial effusion was noted. Other labs during this hospitalization stay revealed a white count of 9.4 with a hemoglobin 16 and a platelet count of 152. INR was 1.1 with a PTT of 25. Electrolytes were normal with a sodium 140 and potassium 4.1. BUN was 11 with creatinine of 0.8 given him a GFR greater than 90. Blood sugar was well 103. A liver function tests were generally unremarkable although albumin was slightly low and second determination at 3.2. Cholesterol values were generally favorable with a total cholesterol 1:30 and an LDL cholesterol 67 although his good cholesterol was 39. Triglycerides were 119. Amylase and lipase were normal. The patient was cleared by cardiology for surgery and he underwent a laparoscopic cholecystectomy. Discharge diagnoses 1. Acute cholecystitis now post laparoscopic cholecystectomy with resolution of his symptoms and findings of cholecystitis. 2. Nonspecific EKG changes to be followed up as outpatient with appointment with cardiology. 3. Past history of hyperlipidemia on lovastatin. Home medications Patient may resume his lovastatin 10 mg at at bedtime Aspirin 81 mg daily Multiple vitamin and evhk-lbw-chgemay co-Q 10. Follow-up with surgery, Dr. Jaffe. Follow-up with cardiology. Office follow-up over the next 7 days. He is to call office if any concerns or problems. Discussed with patient and at bedside this morning. Attending physician: Aldair Law Consults: 12/12/17 15:15 Consult Physician Urgent Consulting Provider: Edward Orellana Consult Reason/Comments: new ecg changes, midepigastric abd pain, r/o acs Do you want consulting provider notified?: Yes Consult Physician Urgent Consulting Provider: Talib Jaffe Consult Reason/Comments: abd pain, cholelithiasis, cholecystitis Do you want consulting provider notified?: Yes Primary care physician: Aldair Law Patient Condition at Discharge: Fair Plan - Discharge Summary Discharge Rx Participant: No New Discharge Prescriptions: No Action Multivitamins, Thera [Multivitamin (formulary)] 1 tab PO HS Lovastatin [Mevacor] 10 mg PO HS Aspirin EC [Ecotrin Low Dose] 81 mg PO HS Ubidecarenone [Co Q-10] 100 mg PO HS Discharge Medication List Aspirin EC [Ecotrin Low Dose] 81 mg PO HS 12/12/17 [History] Lovastatin [Mevacor] 10 mg PO HS 12/12/17 [History] Multivitamins, Thera [Multivitamin (formulary)] 1 tab PO HS 12/12/17 [History] Ubidecarenone [Co Q-10] 100 mg PO HS 12/12/17 [History] Follow up Appointment(s)/Referral(s): Dannie Keenan MD [STAFF PHYSICIAN] - 3 Weeks Aldair Law MD [Primary Care Provider] - 1-2 days
[2017-12-14] MEDS: ENOXAPARIN 40 MG/0.4 ML SYRINGE SQ SCH (08:46)
[2017-12-14] MEDS: PANTOPRAZOLE 40 MG/10 ML VIAL IVP SCH (08:47)
[2017-12-14] MEDS ORDERED: ASPIRIN 81 MG PO SCH (09:00)
--- NOTE | 2017-12-14 09:47 | P.PN ---
Subjective Progress Note Date: 12/14/17 Mr. Red is seen and examined today resting comfortably in bed. He underwent laparoscopic cholecystecomty yesterday with Dr. Jaffe. He has been up ambulating in the halls. He denies any further symptoms of chest pain or epigastric discomfort. Telemetry tracings have been unremarkable. Repeat EKG this morning shows sinus mechanism with resolved T-wave inversions. Blood pressure 145/84 heart rate 69 afebrile and maintaining oxygen saturation on room air. But her data reviewed, sodium 140, potassium 4.1 and creatinine 0.8. Objective - Vital Signs Vital signs: Vital Signs Temp 97.5 F L 12/14/17 08:00 Pulse 69 12/14/17 08:00 Resp 16 12/14/17 08:00 BP 145/84 12/14/17 08:00 Pulse Ox 94 L 12/14/17 08:00 Intake & Output 12/13/17 12/14/17 12/14/17 18:59 06:59 18:59 Intake Total 2770 Output Total 10 Balance 2760 Weight 70.307 kg Intake: IV 1000 Intake, IV Titration 800 Amount Lactated Ringers 1,000 ml 800 As IV [employer] [facility] Rx#: [id number] Oral 970 Output: Estimated Blood Loss 10 Other: Voiding Method Toilet Toilet # Voids 2 - Exam GENERAL: Well-appearing, well-nourished and in no acute distress. NECK: Supple without JVD or thyromegaly. LUNGS: Breath sounds clear to auscultation bilaterally. Respiration equal and unlabored. No wheezes, rales or rhonchi. HEART: Regular rate and rhythm without murmurs, rubs or gallops. S1 and S2 heard. EXTREMITIES: Normal range of motion, no edema. No clubbing or cyanosis. Peripheral pulses intact and strong. - Labs CBC & Chem 7: 12/12/17 10:46 12/14/17 05:34 Labs: Abnormal Lab Results - Last 24 Hours (Table) 12/14/17 Range/Units 05:34 Glucose 103 H (74-99) mg/dL Alkaline Phosphatase 36 L (38-126) U/L Total Protein 5.3 L (6.3-8.2) g/dL Albumin 3.2 L (3.5-5.0) g/dL Assessment and Plan Assessment: ASSESSMENT 1. Epigastric pain with evidence of gallstones and cholelithiasis. Plan is for cholecystectomy with Dr. Jaffe this afternoon. 2. EKG changes, T-wave inversions lateral and inferior. 3. Dyslipidemia, on lovastatin 4. Significant family history of coronary artery disease, father and brother both with premature coronary artery disease PLAN Continue current medical therapy. Repeat EKG obtained and reviewed. Stable from a cardiac perspective. Follow up appointment with Dr. Keenan in 3 weeks. Nurse Practitioner note has been reviewed, I agree with a documented findings and plan of care. Patient was seen and examined.
[2017-12-14 11:47] VITALS: BP 143/67; PULSE 56; RESP 18; TEMP 98.4
[2017-12-15] MEDS ORDERED: PANTOPRAZOLE 40 MG TABLET PO SCH (09:00)
== END 2017-12-14 13:40 | disposition home or self-care (01) ==
LOC: EC 09:44 → 3OBS 15:15
PROVIDERS: ADMIT Internal Medicine; ATTEND Internal Medicine
DX: K80.12 Calculus of gallbladder with acute and chronic cholecystitis without obstruction (principal); R94.31 Abnormal electrocardiogram [ECG] [EKG]; E78.5 Hyperlipidemia, unspecified; Z79.82 Long term (current) use of aspirin; Z79.899 Other long term (current) drug therapy; Z88.2 Allergy status to sulfonamides; Z82.49 Family history of ischemic heart disease and other diseases of the circulatory system; Z87.19 Personal history of other diseases of the digestive system
CPT/HCPCS: 36415; 74177; 76705; 80053; 80061; 81001; 82150; 82550; 82553; 83690; 84484; 85025; 85610; 85730; 88304; 93005; 93306; 96361; 96365; 96366; 96375; 96376; 99285

== ENCOUNTER → 2022-03-12 | Outpatient (CLI) | payer MEDICARE ==
--- NOTE | 2022-03-12 10:52 | CA ---
Stress Echo Report Sid Red Age: 76 Gender: M : 1945 Exam Date: 03/12/2022 10:24 Exam Location: [facility] Ht (in): 68 Wt (lb): 158 Ordering Physician: Jake Velásquez Referring Physician: Didier Joseph;[id number] [employer] Charger Operator: Lenore Camacho RDCS Technologist Procedure CPT: Indication: R42 Dizziness ICD-9 Codes: Rhythm: Patient History: Cardiac Medications: LOVASTATIN,,,,,, COQ10,,,,,, FIBER,,,,,, CALCIUM,,,,, Medications in past 24 hours: Contrast: Stress Results Protocol: Oren Total dose(mL): Exercise Duration (min:sec): [address] Depression (mm): Angina Score: Valdivia Score: METS: 10.3 Resting HR: 86 Resting BP: 144 / 80 Peak HR: 153 Peak BP: 228 / 129 Max Predicted HR: 145 106 % Max Predicted HR Target HR: 123 Double Product: [id number] Stress Summary: BP Response: Reason for Termination: MAX EXERTION/TARGET HR Cardiac Symptoms: NO SYMPTOMS ECG Analysis Resting ECG: Normal sinus rhythm with left axis deviation Stress ECG: No evidence of exercise induced ST segment depression Arrhythmia: Echo Analysis Resting Echo: Normal left ventricular size wall motion systolic function Peak Echo Analysis: Normal hyperdynamic response of all segments of myocardium noted MEASUREMENTS (Male/Female) Normal Values CONCLUSIONS Good exercise tolerance Negative stress test by EKG criteria Negative stress echo Dr. Watson Barnett MD (Electronically Signed) Final Date: 12 March 2022 10:51
== END | disposition home or self-care (01) ==
LOC: RADNMMAIN 09:40
PROVIDERS: ATTEND Family Medicine
DX: R06.02 Shortness of breath (principal); R42 Dizziness and giddiness
CPT/HCPCS: 93351

== ENCOUNTER → 2024-06-26 | Outpatient (CLI) | payer MEDICARE ==
[2024-06-26 08:38] LABS: African American GFR (CKD) >90 (>60 ml/min/1.73 sqM); Blood Urea Nitrogen 16 mg/dL (9-20); Non-African American GFR(CKD) 84 (>60 ml/min/1.73 sqM)
--- NOTE | 2024-06-26 10:56 | CT ---
EXAMINATION TYPE: CT chest w con CT DLP: 260 mGycm, Automated exposure control for dose reduction was used. DATE OF EXAM: 06/26/2024 8:56 AM COMPARISON: CT abdomen and pelvis 12/12/2017 CLINICAL INDICATION:Male, 79 years old with history of J98.4 OTHER DISORDERS OF LUNG; [facility], TECHNIQUE: Multiple axial images were obtained through the chest following the administration of 100 cc of Isovue 300. . Coronal and sagittal reformats reviewed. FINDINGS: LUNGS/ PLEURA: No pleural effusion or pneumothorax. Minimal bilateral lower lobe dependent subsegment al atelectasis. Patchy reticular opacity within the left lateral upper lobe (series 4, image 40). Add itional patchy consolidation within the medial aspect of the left upper lobe (series 4, image 37). P atchy consolidative opacity within the posterior aspect of the right upper lobe abutting the major fi ssure (series 4, image 32). No pulmonary mass or definitive pulmonary nodule. AIRWAY: Patent and unremarkable.. HEART: Size within normal limits.No pericardial effusion. Small coronary calcifications. MEDIASTINUM: No gross evidence of adenopathy. VASCULATURE: No aortic aneurysm. Minimal atherosclerotic calcification of the aortic arch. MUSCULOSKELETAL: No acute osseous abnormalities . Multilevel midthoracic spine anterior osteophytosis . SOFT TISSUES/LYMPH NODES: Minimal bilateral gynecomastia. LOWER NECK: No significant findings. UPPER ABDOMEN: Gallbladder is surgically absent. IMPRESSION: 1. Few scattered regions of opacities/consolidation within the bilateral upper lobes which may repres ent an infectious/inflammatory process. Developing malignancy is not excluded. Follow-up CT chest in 3-6 months is recommended to assess for resolution. 2. No CT abnormality corresponding to reported left hilar prominence. No adenopathy. [facility], , 06/26/2024 10:53 AM
== END | disposition home or self-care (01) ==
LOC: RADCTMAIN 08:03
PROVIDERS: ATTEND Family Medicine
DX: J98.4 Other disorders of lung (principal); R91.8 Other nonspecific abnormal finding of lung field
CPT/HCPCS: 82565; 84520; 71260; 36415; Q9967

== ENCOUNTER → 2024-11-27 | Outpatient (CLI) | payer MEDICARE ==
[2024-11-27 09:18] LABS: African American GFR (CKD) >90 (>60 ml/min/1.73 sqM); Blood Urea Nitrogen 13 mg/dL (9-20); Non-African American GFR(CKD) 84 (>60 ml/min/1.73 sqM)
--- NOTE | 2024-11-27 10:59 | CT ---
EXAMINATION TYPE: CT chest wo/w con DATE OF EXAM: 11/27/2024 9:40 AM COMPARISON: 06/26/2024 CLINICAL INDICATION: Male, 79 years old with history of R91.8 OTHER NONSPECIFIC ABNORMAL FINDING OF L LAURENT F, Follow up to prior abnormal CT, TECHNIQUE: CT scan of the chest is performed without and with IV Contrast, patient injected with 100 mL of Isovue 300. CT DLP: 498.1 mGycm, Automated exposure control for dose reduction was used. FINDINGS: LUNGS: The lungs are grossly clear, there is no concerning parenchymal mass or nodule identified. T here is no pleural effusion or pneumothorax seen. The tracheobronchial tree is patent. MEDIASTINUM: There are no greater than 1 cm hilar or mediastinal lymph nodes. No pericardial effusi on is seen. Thoracic aorta is of normal caliber. HEART: Size within normal limits. No significant coronary artery calcifications. UPPER ABDOMEN: No significant abnormality appreciated. OTHER: No additional significant abnormality is seen. IMPRESSION: 1. Previously noted areas of scattered focal consolidation have resolved in the interval confirming i nflammatory or postinfectious process. No concerning masses or nodules appreciated at this time. [facility], , 11/27/2024 10:57 AM
== END | disposition home or self-care (01) ==
LOC: RADCTMAIN 08:28
PROVIDERS: ATTEND Family Medicine
DX: R91.8 Other nonspecific abnormal finding of lung field (principal)
CPT/HCPCS: 82565; 84520; 71270; 36415; Q9967